=== PATIENT | male | born 1960 | race Caucasian/White ===

== ENCOUNTER 2017-03-12 13:23 | Emergency (ER) | payer BC ==
[~2017-03-12] VITALS: Ht 188 cm; Wt 127.0 kg
[~2017-03-12 13:23] MED LIST: CIPR500T4 PO; DOXY100T PO; METR-1 PO; TYLE3 PO
[2017-03-12 13:47] VITALS: BP 143/90; PULSE 61; RESP 20; TEMP 98
[2017-03-12] MEDS ORDERED: MECLIZINE HCL 25 MG TAB PO ONE (14:00)
[2017-03-12] MEDS ORDERED: ONDANSETRON HCL 4 MG/2 ML VIAL IV PUSH ONE (14:00)
[2017-03-12] MEDS ORDERED: SODIUM CHLOR 0.9% 1000 ML INJ 1,000 ML IV ONE (14:00)
--- NOTE | 2017-03-12 14:00 | PD ---
HPI Chief Complaint: Dizziness Time Seen by Provider: 13:35 Travel History International Travel<30 days: No Contact w/Intl Traveler<30days: No Traveled to known affect area: No History of Present Illness HPI This 56-year-old male is complaining of severe vertigo. He says at 9:00 this morning he had an onset of vertigo. He is feeling very lightheaded. The vertigo has been persistent since then. It is been constant. It is aggravated by opening his eyes and also by any movement. He says he was unable to walk earlier. He has not had trouble with vertigo before. He does have chronic tinnitus. He says that multiple members of his family have tinnitus but he is not aware of anyone that has been diagnosed with Mnire's disease. He vomited. He does say that he felt a ripping sound in his left year last couple of days. His symptoms have not abated at all since onset. He has recently been evaluated for lower abdominal pain and abnormal bowel movements. 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 He recently had an MRI of the abdomen. Etiologies for his abdominal pain has not been determined. He is having some headache PFSH Past Medical History Diabetes: No Diminished Hearing: No Hepatitis: No Hiatal Hernia: No Medical other: Yes (ROSACEA) Thyroid Disease: No Tetanus Vaccination: Unknown Influenza Vaccination: Yes Past Surgical History Oral Surgery: Yes (T&A) Pacemaker: No Tonsillectomy: Yes Other Surgery: Yes Social History Alcohol Use: Yes (RARELY) Tobacco Use: No Substance Use: No Allergies-Medications (Allergen,Severity, Reaction): Coded Allergies: No Known Allergies (Verified , 03/12/17) Reported Meds & Prescriptions Reported Meds & Active Scripts Active Meclizine (Meclizine HCl) 25 Mg Tab 25 Mg PO TID PRN Valium (Diazepam) 5 Mg Tab 5 Mg PO BID PRN Prednisone 20 Mg Tab 60 Mg PO DAILY 5 Days Amoxicillin 500 Mg Cap 500 Mg PO BID 7 Days Review of Systems General / Constitutional: No: Fever, Chills Eyes: No: Diploplia HENT: Positive: Headaches, Vertigo, Earache Cardiovascular: No: Chest Pain or Discomfort, Palpitations Respiratory: No: Cough Gastrointestinal: Positive: Nausea, Vomiting, Abdominal Pain Musculoskeletal: No: Myalgias, Arthralgias Skin: No Rash Neurologic: Positive: Weakness, Headache, No: Syncope Hematologic/Lymphatic: No: Easy Bruising Physical Exam Narrative GENERAL: Well-developed male. He is quite uncomfortable with vertigo. He lays with his eyes closed. SKIN: Focused skin assessment warm/dry. HEAD: Atraumatic. Normocephalic. EYES: Pupils equal and round. No scleral icterus. No injection or drainage. There is horizontal nystagmus on right lateral gaze ENT: No nasal bleeding or discharge. Mucous membranes pink and moist. NECK: Trachea midline. No JVD. CARDIOVASCULAR: Regular rate and rhythm. No murmur appreciated. RESPIRATORY: No accessory muscle use. Clear to auscultation. Breath sounds equal bilaterally. GASTROINTESTINAL: Abdomen soft, non-tender, nondistended. Hepatic and splenic margins not palpable. MUSCULOSKELETAL: No obvious deformities. No clubbing. No cyanosis. No edema. NEUROLOGICAL: Awake and alert. No obvious cranial nerve deficits. Motor grossly within normal limits. Normal speech. PSYCHIATRIC: Appropriate mood and affect; insight and judgment normal. Data Data Last Documented VS Vital Signs Date Time Temp Pulse Resp B/P Pulse Ox O2 Delivery O2 Flow Rate FiO2 03/12/17 17:42 67 16 143/73 99 03/12/17 16:30 Room Air 03/12/17 13:47 98.0 Orders Electrocardiogram (03/12/17 13:48) Complete Blood Count With Diff (03/12/17 13:48) Basic Metabolic Panel (Bmp) (03/12/17 13:48) Urinalysis - C+S If Indicated (03/12/17 13:48) Sodium Chlor 0.9% 1000 Ml Inj (Ns 1000 M (03/12/17 14:00) Ondansetron Inj (Zofran Inj) (03/12/17 14:00) Meclizine (Antivert) (03/12/17 14:00) Mri Brain W/O Contrast (03/12/17 13:48) Labs Laboratory Tests Test 03/12/17 03/12/17 14:15 16:00 White Blood Count 12.1 TH/MM3 Red Blood Count 5.54 MIL/MM3 Hemoglobin 15.4 GM/DL Hematocrit 47.0 % Mean Corpuscular Volume 84.8 FL Mean Corpuscular Hemoglobin 27.9 PG Mean Corpuscular Hemoglobin 32.9 % Concent Red Cell Distribution Width 13.3 % Platelet Count 224 TH/MM3 Mean Platelet Volume 8.2 FL Neutrophils (%) (Auto) 85.6 % Lymphocytes (%) (Auto) 9.9 % Monocytes (%) (Auto) 3.4 % Eosinophils (%) (Auto) 0.6 % Basophils (%) (Auto) 0.5 % Neutrophils # (Auto) 10.3 TH/MM3 Lymphocytes # (Auto) 1.2 TH/MM3 Monocytes # (Auto) 0.4 TH/MM3 Eosinophils # (Auto) 0.1 TH/MM3 Basophils # (Auto) 0.1 TH/MM3 CBC Comment DIFF FINAL Differential Comment Sodium Level 140 MEQ/L Potassium Level 3.9 MEQ/L Chloride Level 106 MEQ/L Carbon Dioxide Level 25.0 MEQ/L Anion Gap 9 MEQ/L Blood Urea Nitrogen 21 MG/DL Creatinine 0.87 MG/DL Estimat Glomerular Filtration 90 ML/MIN Rate Random Glucose 115 MG/DL Calcium Level 8.8 MG/DL Urine Collection Type CLEAN CATCH Urine Color YELLOW Urine Turbidity CLEAR Urine pH 6.5 Urine Specific [place] 1.026 Urine Protein NEG mg/dL Urine Glucose (UA) NEG mg/dL Urine Ketones 15 mg/dL Urine Occult Blood NEG Urine Nitrite NEG Urine Bilirubin NEG Urine Leukocyte Esterase NEG Urine RBC 0-3 /hpf Urine Squamous Epithelial 0-5 /hpf Cells Microscopic Urinalysis Comment CULT NOT INDICATED Urine Collection Time 16:00 [facility] Medical Decision Making Medical Screen Exam Complete: Yes Emergency Medical Condition: Yes Medical Record Reviewed: Yes Differential Diagnosis Differential includes Mnire's disease, labyrinthitis, CVA Narrative Course On arrival and a IV was started and patient was given Zofran followed by oral meclizine. Nausea settled down though he did have some persistent vertigo. MRI was ordered to assess for possible CVA pending at the time of my departure. Disposition determined by oncoming physician Diagnosis Primary Impression: Acute onset of severe vertigo Scripts Meclizine 25 Mg Tab25 Mg PO TID PRN (VERTIGO) #30 TAB Ref 0 Prov:Jose Stoll MD 03/12/17 Diazepam (Valium)5 Mg Tab5 Mg PO BID PRN (VERTIGO) #15 TAB Ref 0 Prov:Jose Stoll MD 03/12/17 Prednisone 20 Mg Tab60 Mg PO DAILY 5 Days Ref 0 Prov:Jose Stoll MD 03/12/17 Amoxicillin 500 Mg Sec223 Mg PO BID 7 Days Ref 0 Prov:Jose Stoll MD 03/12/17 Galindo Galvez MD Mar 12, 2017 14:00
[2017-03-12 14:24] LABS: AUTOMATED NEUTROPHIL # 10.3 TH/MM3 (1.8-7.7); BASOPHIL # 0.1 TH/MM3 (0-0.2); BASOPHIL % 0.5 % (0.0-2.0); EOSINOPHIL # 0.1 TH/MM3 (0-0.4); EOSINOPHIL % 0.6 % (0.0-4.0); LYMPH % 9.9 % (9.0-44.0); LYMPHOCYTE # 1.2 TH/MM3 (1.0-4.8); MEAN CELL VOLUME 84.8 FL (80.0-100.0); MEAN CORPUSCULAR HEMOGLOBIN 27.9 PG (27.0-34.0); MEAN CORPUSCULAR HGB CONC 32.9 % (32.0-36.0); MONO % 3.4 % (0.0-8.0); NEUT % 85.6 % (16.0-70.0); PLATELET COUNT 224 TH/MM3 (150-450); RED BLOOD COUNT 5.54 MIL/MM3 (4.50-5.90); RED CELL DISTRIBUTION WIDTH 13.3 % (11.6-17.2); WHITE BLOOD COUNT 12.1 TH/MM3 (4.0-11.0)
[2017-03-12 14:25] VITALS: BP 138/78; PULSE 64; RESP 16; O2SAT 98
[2017-03-12 14:29] LABS: HEMO FLAGS DIFF FINAL
[2017-03-12 14:34] LABS: POTASSIUM 3.9 MEQ/L (3.5-5.1)
[2017-03-12 15:30] VITALS: BP 149/75; PULSE 63; RESP 16; O2SAT 98
--- NOTE | 2017-03-12 16:08 | RADRPT ---
EXAM DATE/TIME: 03/12/2017 15:39 [facility] COMPARISON: No previous studies available for comparison. INDICATIONS : CVA. Vertigo. MEDICAL HISTORY : None. SURGICAL HISTORY : Tonsillectomy. Rt ankle. ENCOUNTER: Initial ACUITY: 1 day PAIN SCORE: 0/10 LOCATION: head TECHNIQUE: Multiplanar, multisequence MRI of the brain was performed without contrast. FINDINGS: CEREBRUM: The ventricles are normal for age. No evidence of midline shift, mass lesion, hemorrhage or acute in farction. No extraaxial fluid collections are seen. The pituitary gland and suprasellar cistern are normal in configuration. WHITE MATTER: Very minimal periventricular nonspecific white matter changes are evident. POSTERIOR FOSSA: 7 and VIII nerves are well-visualized and are unremarkable. There is no mass lesion identified. No significant ischemic changes. DIFFUSION IMAGING: No focal areas of restricted diffusion are seen. No evidence of acute infarction. EXTRACRANIAL: There are minimal mastoid disease is present on the right, nonspecific. The orbits are unremarkable. CONCLUSION: 1. Minimal mastoid disease on the right not felt to be contributory 2. Minimal periventricular white matter changes 3. Eyes and sharply deviated to the left of the scanner 4. No other acute process is evident. Nathan Huff MD FACR on March 12, 2017 at 16:04 Board Certified Radiologist. This report was verified electronically.
[2017-03-12 16:13] LABS: BLOOD, URINE NEG (NEG); GLUCOSE,URINE NEG (NEG); KETONE, URINE 15 mg/dL (NEG); NITRITE,URINE NEG (NEG); PH, URINE 6.5 (5.0-8.5)
[2017-03-12 16:18] LABS: COMMENT (UR) CULT NOT INDICATED; CULTURE IF INDICATED CULT NOT INDICATED; METHOD OF COLLECTION CLEAN CATCH; RBC, URINE 0-3 /hpf (0-3); SQUAMOUS EPITHELIAL CELL URINE 0-5 /hpf (0-5); URINE COLOR YELLOW (YELLW/STRAW)
[2017-03-12 16:30] VITALS: BP 153/74; PULSE 70; RESP 16; O2SAT 98
[2017-03-12] MEDS ORDERED: PRED20 PO (16:49)
[2017-03-12] MEDS ORDERED: MECL-62 PO (16:49)
[2017-03-12] MEDS ORDERED: DIAZ5 PO (16:49)
[2017-03-12] MEDS ORDERED: AMOX500C PO (16:49)
--- NOTE | 2017-03-12 16:49 | PD ---
Data Data Last Documented VS Vital Signs Date Time Temp Pulse Resp B/P Pulse Ox O2 Delivery O2 Flow Rate FiO2 03/12/17 17:42 67 16 143/73 99 03/12/17 16:30 Room Air 03/12/17 13:47 98.0 Orders Electrocardiogram (03/12/17 13:48) Complete Blood Count With Diff (03/12/17 13:48) Basic Metabolic Panel (Bmp) (03/12/17 13:48) Urinalysis - C+S If Indicated (03/12/17 13:48) Sodium Chlor 0.9% 1000 Ml Inj (Ns 1000 M (03/12/17 14:00) Ondansetron Inj (Zofran Inj) (03/12/17 14:00) Meclizine (Antivert) (03/12/17 14:00) Mri Brain W/O Contrast (03/12/17 13:48) Labs Laboratory Tests Test 03/12/17 03/12/17 14:15 16:00 White Blood Count 12.1 TH/MM3 Red Blood Count 5.54 MIL/MM3 Hemoglobin 15.4 GM/DL Hematocrit 47.0 % Mean Corpuscular Volume 84.8 FL Mean Corpuscular Hemoglobin 27.9 PG Mean Corpuscular Hemoglobin 32.9 % Concent Red Cell Distribution Width 13.3 % Platelet Count 224 TH/MM3 Mean Platelet Volume 8.2 FL Neutrophils (%) (Auto) 85.6 % Lymphocytes (%) (Auto) 9.9 % Monocytes (%) (Auto) 3.4 % Eosinophils (%) (Auto) 0.6 % Basophils (%) (Auto) 0.5 % Neutrophils # (Auto) 10.3 TH/MM3 Lymphocytes # (Auto) 1.2 TH/MM3 Monocytes # (Auto) 0.4 TH/MM3 Eosinophils # (Auto) 0.1 TH/MM3 Basophils # (Auto) 0.1 TH/MM3 CBC Comment DIFF FINAL Differential Comment Sodium Level 140 MEQ/L Potassium Level 3.9 MEQ/L Chloride Level 106 MEQ/L Carbon Dioxide Level 25.0 MEQ/L Anion Gap 9 MEQ/L Blood Urea Nitrogen 21 MG/DL Creatinine 0.87 MG/DL Estimat Glomerular Filtration 90 ML/MIN Rate Random Glucose 115 MG/DL Calcium Level 8.8 MG/DL Urine Collection Type CLEAN CATCH Urine Color YELLOW Urine Turbidity CLEAR Urine pH 6.5 Urine Specific [place] 1.026 Urine Protein NEG mg/dL Urine Glucose (UA) NEG mg/dL Urine Ketones 15 mg/dL Urine Occult Blood NEG Urine Nitrite NEG Urine Bilirubin NEG Urine Leukocyte Esterase NEG Urine RBC 0-3 /hpf Urine Squamous Epithelial 0-5 /hpf Cells Microscopic Urinalysis Comment CULT NOT INDICATED Urine Collection Time 16:00 [facility] Supervised Visit with NEGRITA: No Narrative Course Patient care assumed from Dr. Yoder at 1600. This is a 56-year-old male presents with vertigo and nystagmus. My examination his neurologic exam is otherwise benign. He has horizontal nystagmus particularly gazing to the right. Cerebellar testing with [id number] and heel perdue testing is negative. He is able to ambulate even and balanced. Lism[place]-Hallpike was deferred. Cranial nerves II through XII are grossly intact and nonfocal, 5 out of 5 strength in all 4 extremities. Quite pleasant male, his differential diagnosis includes labyrinthitis Mnire's disease BPPV as cerebellar stroke. I agree with Dr. Yoder that MRI is completely indicated in this patient we are awaiting results. Last 24 hours Impressions Brain MRI 03/12/17 1348 Signed Impressions: Service Date/Time: Sunday, March 12, 2017 15:39 - CONCLUSION: 1. Minimal mastoid disease on the right not felt to be contributory 2. Minimal periventricular white matter changes 3. Eyes and sharply deviated to the left of the scanner 4. No other acute process is evident. Nathan Huff MD FACR Results were discussed with patient and I see no obvious signs of his symptoms. The patient does tell me that it felt like drip was going down his left ear a few days ago. Is possible that he did develop some level of labyrinthitis but is not actually having any pain. There is no mastoid tenderness bilaterally. I agree with Dr. Yoder that antibiotics are likely a long shot but will place him on them. Dose as well as steroids. Antivert was prescribed. 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 Given the symptoms he was offered a dose here and declined. I will write him a prescription to go home with discussing with him that if he takes it he may disqualify himself from work. I also discussed that given his level of nystagmus and vertigo that this may disqualify him from work anyways. I discussed with them need follow-up with a neurologist and an urine nose and throat specialist and he was offered admission to the hospital but declined currently. Discussed return to ED criteria and follow-up with primary care physician as well Diagnosis Primary Impression: Vertigo Additional Impression: Nystagmus Referrals: Alex Kearns MD, Anthony T. MD Med/Other Pt SpecificInfo: Prescription(s) given Scripts Meclizine 25 Mg Tab25 Mg PO TID PRN (VERTIGO) #30 TAB Ref 0 Prov:Jose Stoll MD 03/12/17 Diazepam (Valium)5 Mg Tab5 Mg PO BID PRN (VERTIGO) #15 TAB Ref 0 Prov:Jose Stoll MD 03/12/17 Prednisone 20 Mg Tab60 Mg PO DAILY 5 Days Ref 0 Prov:Jose Stoll MD 03/12/17 Amoxicillin 500 Mg Uop497 Mg PO BID 7 Days Ref 0 Prov:Jose Stoll MD 03/12/17 Disposition: 01 DISCHARGE HOME Condition: Stable Jose Stoll MD Mar 12, 2017 16:49
[2017-03-12 17:42] VITALS: BP 143/73
--- NOTE | 2017-03-13 16:24 | EKG ---
Date Performed: 03/12/2017 Time Performed: 13:58:07 PTAGE: 56 years EKG: NORMAL Sinus rhythm POSSIBLE LVH BY VOLTAGE CRITERIA IN [place], [place] PRIOR TRACING BORDERLINE ECG PREVIOUS TRACING : 09/27/2013 06.47 DOCTOR: Perez Machado Interpretating Date/Time 03/13/2017 16:23:20
== END 2017-03-12 17:43 | disposition home or self-care (01) ==
LOC: PHED 13:23
DX: R42 Dizziness and giddiness (principal); H55.00 Unspecified nystagmus; R11.2 Nausea with vomiting, unspecified; R51 Headache; R10.30 Lower abdominal pain, unspecified; R94.31 Abnormal electrocardiogram [ECG] [EKG]; Z87.2 Personal history of diseases of the skin and subcutaneous tissue
CPT/HCPCS: 70551; 80048; 81001; 85025; 93005; 96361; 96374; 99285; J2405; J7030